=== PATIENT | female | born 1985 | race Caucasian/White ===

== ENCOUNTER 2024-11-26 20:35 | Emergency (ER) | payer SELFPAY ==
[~2024-11-26] VITALS: Ht 165.1 cm; Wt 83.6 kg
[2024-11-26 21:21] LABS: BASO # 0.02 K/mm3 (0.02-0.10); EOS # 0.14 K/mm3 (0.04-0.40); EOS % 2.1 % (1.0-5.0); HEMATOCRIT 36.3 % (37.0-47.0); HEMOGLOBIN 11.5 g/dL (12.5-16.0); LYMPH# 3.43 K/mm3 (1.50-4.00); MEAN CELL VOLUME 82 fl (78-100); MEAN CORPUSCULAR HEMOGLOBIN 26 pg (27-31); MEAN CORPUSCULAR HGB CONC 32 g/dL (33-37); MONO # 0.47 K/mm3 (0.20-0.80); NEU # 2.61 K/mm3 (1.40-6.50); PLATELET COUNT 245 K/mm3 (130-400); RED BLOOD COUNT 4.43 M/mm3 (4.10-5.30); WHITE BLOOD COUNT 6.7 K/mm3 (4.8-10.8)
[2024-11-26 21:28] LABS: ALBUMIN 4.1 g/dL (3.5-5.0); SODIUM 140 mmol/L (136-145)
[2024-11-26 21:30] LABS: GLUCOSE 99 mg/dL (65-105)
[2024-11-26 21:31] LABS: TOTAL PROTEIN 6.8 g/dL (6.4-8.3)
[2024-11-26 21:32] LABS: CARBON DIOXIDE 22 mmol/L (22-29); TOTAL BILIRUBIN 0.5 mg/dL (0.2-1.2)
[2024-11-26 21:33] LABS: PROTHROMBIN TIME 10.9 SECONDS (9.0-12.0)
[2024-11-26 21:36] LABS: AST-SGOT 15 U/L (5-34)
[2024-11-26 21:37] LABS: ALT/SGPT 8 U/L (0-55)
[2024-11-26 23:07] LABS: TROPONIN-I < 0.030 ng/mL (0.00-0.033)
[2024-11-26 23:56] VITALS: BP 105/71
== END 2024-11-26 23:56 | disposition home or self-care (01) ==
LOC: ED 20:35
PROVIDERS: Nurse Practitioner
DX: R00.2 Palpitations (principal); R07.89 Other chest pain; R11.0 Nausea